=== PATIENT | female | born 1950 | race Caucasian/White ===

== ENCOUNTER → 2017-11-08 | Outpatient (CLI) | payer OTHER ==
--- NOTE | 2017-11-08 13:30 | PCVCIMAG ---
APPROVED REPORT Study performed: 11/08/2017 10:35:11 EXAM: Comprehensive 2D, Doppler, and color-flow Echocardiogram Patient Location: Echo lab Status: routine BSA: 2.05 HR: 87 bpmBP: 129/83 mmHg Rhythm: NSR Other Information Study Quality: Adequate Indications Abnormal ECG Dyspnea CAD Chest Pain 2D Dimensions LVEF(%): 36.65 (>50%) IVSd: 11.05 (7-11mm)LVOT Diam: 21.56 (18-24mm) LVDd: 38.00 mm PWd: 10.58 (7-11mm)Ascending Ao: 33.56 (22-36mm) LVDs: 31.44 (25-40mm) Left Atrium: 32.84 (27-40mm) Aortic Root: 29.36 mm LV Single Plane 4CH: 51.02 % LV Single Plane 2CH: 46.17 %Booker's LVEF: 48.60 % Biplane EF: 49.4 % Volumes Left Atrial Volume (Systole) Single Plane 4CH: 49.62 mLSingle Plane 2CH: 67.10 mL LA ESV Index: 28.00 mL/m2 Aortic Valve AoV Peak Abiel.: 1.96 m/s AO Peak Gr.: 15.44 mmHgLVOT Max P.36 mmHg LVOT Max V: 1.26 m/s VANIA Vmax: 2.34 cm2 AI Vmax: 4.66 m/s AI Blaine: 3.06 m/s2 AI PHT: 444.61 ms Mitral Valve E/A Ratio: 0.6 MV Decel. Time: 271.03 ms MV E Max Abiel.: 0.62 m/s MV A Abiel.: 0.97 m/s IVRT: 103.81 ms Pulmonary Valve PV Peak Abiel.: 0.84 m/sPV Peak Gr.: 2.85 mmHg Pulmonary Vein P Vein S: 0.28 m/sP Vein A: 0.33 m/s P Vein D: 0.34 m/sP Vein A Dur.: 114.2 msec P Vein S/D Ratio: 0.82 Tricuspid Valve TR Peak Abiel.: 2.20 m/s TR Peak Gr.: 19.32 mmHg Left Ventricle The left ventricle is normal size. There is normal LV segmental wall motion. There is normal left ventricular wall thickness. Left ventricular systolic function is within lower limits of normal. LVEF is 50-55%. Grade I - abnormal relaxation pattern. Right Ventricle The right ventricle is normal size. The right ventricular systolic function is normal. Atria The left atrium size is normal. The right atrium size is normal. Aortic Valve The aortic valve is normal in structure. Mild aortic regurgitation. There is no aortic valvular stenosis. Mitral Valve The mitral valve is normal in structure. Trace mitral regurgitation. No evidence of mitral valve stenosis. Tricuspid Valve The tricuspid valve is normal in structure. Trace tricuspid regurgitation with PAP of 26 mmHg. Pulmonic Valve The pulmonary valve is normal in structure. There is no pulmonic valvular regurgitation. Great Vessels The aortic root is normal in size. IVC is normal in size and collapses with >50% inspiration Pericardium There is no pericardial effusion. There is no pleural effusion. <Conclusion> The left ventricle is normal size. LVEF is 50-55%. There is normal LV segmental wall motion. The aortic valve is normal in structure. Mild aortic regurgitation. The mitral valve is normal in structure. Trace mitral regurgitation. The tricuspid valve is normal in structure. Trace tricuspid regurgitation with PAP of 26 mmHg. The pulmonary valve is normal in structure. There is no pericardial effusion.
== END | disposition home or self-care (01) ==
LOC: PCVCIMAG 12:48
PROVIDERS: ATTEND Internal Medicine
DX: I06.1 Rheumatic aortic insufficiency (principal); I25.10 Atherosclerotic heart disease of native coronary artery without angina pectoris; I10 Essential (primary) hypertension; R94.31 Abnormal electrocardiogram [ECG] [EKG]; R06.09 Other forms of dyspnea
CPT/HCPCS: 93306

== ENCOUNTER → 2017-12-06 | Outpatient (CLI) | payer OTHER | END | disposition home or self-care (01) | LOC: PCVCCLINIC 14:22 | PROVIDERS: ATTEND Internal Medicine | DX: I25.10 Atherosclerotic heart disease of native coronary artery without angina pectoris (principal); I10 Essential (primary) hypertension; Z79.82 Long term (current) use of aspirin; F17.210 Nicotine dependence, cigarettes, uncomplicated | CPT/HCPCS: G0463 ==

== ENCOUNTER → 2018-06-06 | Outpatient (CLI) | payer OTHER ==
--- NOTE | 2018-06-06 14:45 | PCVCIMAG ---
APPROVED REPORT Laterality: Bilateral Indications Bruit Doppler Spectral Velocity Analysis PSV / EDVPSV / EDV ECA (R) 111 / 21 cm/sECA (L) 130 / 25 cm/s dICA (R) 47 / 18 cm/sdICA (L) 55 / 23 cm/s Oscar (R) 59 / 22 cm/smICA (L) 64 / 23 cm/s pICA (R) 44 / 15 cm/spICA (L) 59 / 19 cm/s Bulb (R) 70 / 19 cm/sBulb (L) 65 / 21 cm/s dCCA (R) 78 / 21 cm/sdCCA (L) 68 / 30 cm/s mCCA (R) 57 / 17 cm/smCCA (L) 80 / 24 cm/s Vert (R) 50 / 13 cm/sVert (L) 42 / 12 cm/s ICA/CCA ICA/CCA Findings The right carotid bulb has moderate calcified plaque. The right proximal internal carotid artery shows <40% stenosis. The right common carotid artery shows no significant stenosis. The right external carotid artery shows no significant stenosis. The left carotid bulb has mild plaque. The left proximal internal carotid artery shows no significant stenosis. The left common carotid artery shows no significant stenosis. The left external carotid artery shows no significant stenosis. Conclusion 1. Right internal carotid artery plaquing (<40% stenosis) 2. Left internal carotid artery plaquing without significant stenosis 3. Antegrade vertebral flow
== END | disposition home or self-care (01) ==
LOC: PCVCIMAG 13:39
PROVIDERS: ATTEND Internal Medicine
DX: I65.23 Occlusion and stenosis of bilateral carotid arteries (principal); R09.89 Other specified symptoms and signs involving the circulatory and respiratory systems; I10 Essential (primary) hypertension; Z95.5 Presence of coronary angioplasty implant and graft
CPT/HCPCS: 93880

== ENCOUNTER → 2018-12-05 | Outpatient (CLI) | payer OTHER | END | disposition home or self-care (01) | LOC: PCVCCLINIC 14:58 | PROVIDERS: ATTEND Internal Medicine | DX: I25.10 Atherosclerotic heart disease of native coronary artery without angina pectoris (principal); E78.5 Hyperlipidemia, unspecified; I10 Essential (primary) hypertension; E78.00 Pure hypercholesterolemia, unspecified; F17.210 Nicotine dependence, cigarettes, uncomplicated; Z88.5 Allergy status to narcotic agent; Z88.0 Allergy status to penicillin; Z88.1 Allergy status to other antibiotic agents; Z79.82 Long term (current) use of aspirin; Z79.899 Other long term (current) drug therapy; Z85.41 Personal history of malignant neoplasm of cervix uteri; Z90.710 Acquired absence of both cervix and uterus | CPT/HCPCS: 93005; G0463 ==